=== PATIENT | female | born 2000 | race Two or more races ===

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

== ENCOUNTER 2021-04-10 14:20 | Emergency (ER) | payer BC ==
[~2021-04-10] VITALS: Ht 180.3 cm; Wt 150.0 kg
[~2021-04-10 14:20] MED LIST changes: +birth control PO
[2021-04-10 14:37] VITALS: BP 128/45
--- NOTE | 2021-04-10 15:29 | NUR ---
Patient given discharge instructions and they have confirmed that they understand the instructions. Patient ambulatory with steady gait.
== END 2021-04-10 15:46 | disposition home or self-care (01) ==
LOC: ED 15:43
DX: S71.132A Puncture wound without foreign body, left thigh, initial encounter (principal); W46.1XXA Contact with contaminated hypodermic needle, initial encounter; Y93.89 Activity, other specified; Y92.89 Other specified places as the place of occurrence of the external cause; Y99.8 Other external cause status
CPT/HCPCS: 36415; 86317; 86705; 86803; 87340; 87806; 99283; G0475